=== PATIENT | male | born 1960 | race African-American/Black ===

== ENCOUNTER 2016-12-25 11:04 | Outpatient (CLI) | payer MEDICARE, MEDICAID ==
--- NOTE | 2016-12-25 14:45 | RAD ---
RIGHT KNEE 4 VIEWS: Date: 12/25/16 HISTORY: Osteoarthritis. COMPARISON: None. FINDINGS: There is severe medial compartment osteoarthritic disease. Large osteophytes in medial compartment. There is no acute fracture or malalignment. Small joint effusion. IMPRESSION: Severe medial compartment osteoarthrosis. POS: [facility]
== END 2016-12-25 11:05 | disposition home or self-care (01) ==
LOC: BURRAD 11:04
PROVIDERS: ATTEND Family Medicine
DX: M17.11 Unilateral primary osteoarthritis, right knee (principal)

== ENCOUNTER 2017-01-11 13:41 | Emergency (ER) | payer MEDICARE, MEDICAID ==
[2017-01-11 14:04] LABS: #Basophils 0.1 thou/uL (0.0-0.2); #Eosinphils 0.2 thou/uL (0.0-0.7); #Lymphocytes 3.2 thou/uL (1.20-3.40); #Monocytes 0.8 thou/uL (0.11-0.59); %Basophils 1.3 % (0.0-1.0); %Eosinophils 2.6 % (0.0-10.0); %Lymphocytes 43.9 % (21.0-51.0); %Monocytes 11.5 % (0.0-10.0); %Neutrophils 40.8 % (42.0-75.0); Hemoglobin 12.9 g/dL (14.0-18.0); Mean Corpuscular HGB CONC 32.8 g/dL (32.0-36.0); Mean Corpuscular Hemoglobin 30.8 pg (27.0-31.0); Mean Platelet Volume 8.1 fL (7.4-10.4); Platelet Count 150 thou/uL (130-400); Red Blood Cell (RBC) Count 4.19 mill/uL (4.70-6.10); White Blood Cell (WBC) Count 7.3 thou/uL (4.8-10.8)
[2017-01-11 14:20] LABS: ALT (SGPT) 79 U/L (8-55); AST (SGOT) 86 U/L (5-34); Albumin 3.6 g/dL (3.5-5.0); Alkaline Phosphatase 97 U/L (40-150); Anion Gap 16 mmol/L (10-20); BUN (Urea Nitrogen) 17 mg/dL (8.4-25.7); Calc. Creatinine Clearance 0 mL/min (70-130); Calcium 9.5 mg/dL (7.8-10.44); Carbon Dioxide 22 mmol/L (22-29); Chloride 102 mmol/L (98-107); Estimated GFR-MDRD 63; Globulin 4.5 g/dL (2.4-3.5); Glucose 143 mg/dL (70-105); Potassium 3.8 mmol/L (3.5-5.1); Protein, Total 8.1 g/dL (6.0-8.3); Sodium 136 mmol/L (136-145)
[2017-01-11 14:22] LABS: CKMB 0.9 ng/mL (0-6.6); Troponin I Less than 0.010 ng/mL (< 0.028)
--- NOTE | 2017-01-11 20:37 | RAD ---
CHEST TWO VIEWS: Date: 01-11-17 Comparison: 12-19-12 FINDINGS: The heart is normal in size and the lungs are clear. No infiltrate or effusion was seen. The lungs s how no acute changes. The mediastinum appears normal. The [facility], but this is really no different than its appearance in 2013. IMPRESSION: No acute thoracic finding. POS: HOME
== END 2017-01-11 14:49 | disposition home or self-care (01) ==
LOC: BURERS 13:41
DX: E05.90 Thyrotoxicosis, unspecified without thyrotoxic crisis or storm (principal); F41.9 Anxiety disorder, unspecified; I10 Essential (primary) hypertension; F17.210 Nicotine dependence, cigarettes, uncomplicated; M17.11 Unilateral primary osteoarthritis, right knee
CPT/HCPCS: 36415; 71020; 80053; 82553; 83735; 84443; 84484; 85025; 93005

== ENCOUNTER 2017-02-06 13:45 | Inpatient (IN) | payer MEDICARE, MEDICAID ==
[2017-02-06] MEDS ORDERED: Milk Of Magnesia 30 ML UDCUP PO PRN (16:26)
[2017-02-06] MEDS ORDERED: Mag-Al Plus 1200 MG/1200 MG/120 MG/30 ML UDCUP PO PRN (16:47)
[2017-02-06] MEDS ORDERED: HYDROcodone/Acetaminophen 10/325 mg Tablet ONE ×3 (16:48→20:58)
[2017-02-06] MEDS: HYDROcodone/Acetaminophen 10/325 mg Tablet PO PRN ×2 (16:50→21:00)
[2017-02-06 18:21] VITALS: BMI 34.4
[2017-02-06] MEDS: Enoxaparin Sodium 30 MG/0.3 ML SYRINGE SC SCH (18:37)
[2017-02-06] MEDS ORDERED: cloNIDine HCl 0.1 MG TAB PO SCH (20:00)
[2017-02-06] MEDS: Lisinopril 20 MG TAB PO SCH (20:19)
[2017-02-06] MEDS: Ferrous Gluconate 324 MG TAB PO SCH (20:19)
[2017-02-06] MEDS: traMADol HCl 50 MG TAB PO PRN (20:23)
[2017-02-06] MEDS ORDERED: Lisinopril 5 MG TAB PO SCH (21:00)
[2017-02-06] MEDS: Zolpidem Tartrate 5 MG TAB PO PRN (21:01)
[2017-02-07] MEDS ORDERED: HYDROcodone/Acetaminophen 10/325 mg Tablet ONE ×3 (06:45→12:33)
[2017-02-07] MEDS: HYDROcodone/Acetaminophen 10/325 mg Tablet PO PRN ×4 (06:49→21:05)
[2017-02-07] MEDS: Ferrous Gluconate 324 MG TAB PO SCH ×2 (08:53→21:06)
[2017-02-07] MEDS: Multivitamin W/ Minerals 1 TAB PO SCH (08:53)
[2017-02-07] MEDS: Lisinopril 20 MG TAB PO SCH ×2 (08:53→21:05)
[2017-02-07] MEDS: Cyclobenzaprine 10 MG TAB PO PRN (15:13)
[2017-02-07] MEDS: traMADol HCl 50 MG TAB PO PRN (15:17)
[2017-02-07] MEDS: Enoxaparin Sodium 30 MG/0.3 ML SYRINGE SC SCH (18:40)
[2017-02-07] MEDS: Zolpidem Tartrate 5 MG TAB PO PRN (21:05)
[2017-02-08] MEDS: HYDROcodone/Acetaminophen 10/325 mg Tablet PO PRN ×3 (09:24→20:38)
[2017-02-08] MEDS: Lisinopril 20 MG TAB PO SCH ×2 (09:25→20:37)
[2017-02-08] MEDS: Multivitamin W/ Minerals 1 TAB PO SCH (09:26)
[2017-02-08] MEDS: Ferrous Gluconate 324 MG TAB PO SCH ×2 (09:26→20:37)
[2017-02-08] MEDS: Cyclobenzaprine 10 MG TAB PO PRN (15:04)
[2017-02-08] MEDS: Enoxaparin Sodium 30 MG/0.3 ML SYRINGE SC SCH (17:42)
[2017-02-08] MEDS: traMADol HCl 50 MG TAB PO PRN (17:45)
[2017-02-09] MEDS: Cyclobenzaprine 10 MG TAB PO PRN (01:15)
[2017-02-09] MEDS: HYDROcodone/Acetaminophen 10/325 mg Tablet PO PRN ×6 (01:17→21:09)
[2017-02-09] MEDS: Multivitamin W/ Minerals 1 TAB PO SCH (09:29)
[2017-02-09] MEDS: Lisinopril 20 MG TAB PO SCH ×2 (09:29→21:10)
[2017-02-09] MEDS: Ferrous Gluconate 324 MG TAB PO SCH ×2 (09:29→21:10)
[2017-02-09] MEDS: Enoxaparin Sodium 30 MG/0.3 ML SYRINGE SC SCH (17:21)
[2017-02-09] MEDS: Zolpidem Tartrate 5 MG TAB PO PRN (21:08)
[2017-02-10] MEDS: HYDROcodone/Acetaminophen 10/325 mg Tablet PO PRN ×5 (01:24→21:22)
[2017-02-10] MEDS: traMADol HCl 50 MG TAB PO PRN (03:06)
[2017-02-10] MEDS: Cyclobenzaprine 10 MG TAB PO PRN (03:06)
[2017-02-10] MEDS: Lisinopril 20 MG TAB PO SCH ×2 (09:11→21:23)
[2017-02-10] MEDS: Multivitamin W/ Minerals 1 TAB PO SCH (09:15)
[2017-02-10] MEDS: Ferrous Gluconate 324 MG TAB PO SCH ×2 (09:15→21:23)
[2017-02-10] MEDS: Polyethylene Glycol 3350 17 GM Packet PO SCH (09:15)
[2017-02-10] MEDS ORDERED: Cyclobenzaprine 10 MG TAB PO PRN (15:53)
[2017-02-10] MEDS: Enoxaparin Sodium 30 MG/0.3 ML SYRINGE SC SCH (17:10)
[2017-02-10] MEDS ORDERED: Benzonatate 100 MG CAP PO PRN (18:28)
[2017-02-10] MEDS: Zolpidem Tartrate 5 MG TAB PO PRN (21:22)
[2017-02-11] MEDS: traMADol HCl 50 MG TAB PO PRN (00:03)
[2017-02-11] MEDS: HYDROcodone/Acetaminophen 10/325 mg Tablet PO PRN ×4 (06:22→22:27)
[2017-02-11] MEDS: Ferrous Gluconate 324 MG TAB PO SCH ×2 (10:15→20:48)
[2017-02-11] MEDS: Multivitamin W/ Minerals 1 TAB PO SCH (10:15)
[2017-02-11] MEDS: Polyethylene Glycol 3350 17 GM Packet PO SCH (10:15)
[2017-02-11] MEDS: Lisinopril 20 MG TAB PO SCH ×2 (10:18→20:48)
[2017-02-11] MEDS: Enoxaparin Sodium 30 MG/0.3 ML SYRINGE SC SCH (17:46)
[2017-02-11] MEDS: Zolpidem Tartrate 5 MG TAB PO PRN (22:27)
[2017-02-12] MEDS: Ferrous Gluconate 324 MG TAB PO SCH ×2 (08:35→21:02)
[2017-02-12] MEDS: HYDROcodone/Acetaminophen 10/325 mg Tablet PO PRN ×3 (08:35→21:43)
[2017-02-12] MEDS: Multivitamin W/ Minerals 1 TAB PO SCH (08:36)
[2017-02-12] MEDS: Lisinopril 20 MG TAB PO SCH ×2 (08:36→21:02)
[2017-02-12] MEDS: Polyethylene Glycol 3350 17 GM Packet PO SCH (08:38)
[2017-02-12] MEDS: traMADol HCl 50 MG TAB PO PRN (10:57)
[2017-02-12] MEDS: Enoxaparin Sodium 30 MG/0.3 ML SYRINGE SC SCH (17:40)
[2017-02-13] MEDS: HYDROcodone/Acetaminophen 10/325 mg Tablet PO PRN ×5 (03:59→23:15)
[2017-02-13] MEDS: Polyethylene Glycol 3350 17 GM Packet PO SCH (09:30)
[2017-02-13] MEDS: Lisinopril 20 MG TAB PO SCH ×2 (09:30→20:24)
[2017-02-13] MEDS: Ferrous Gluconate 324 MG TAB PO SCH ×2 (09:31→20:24)
[2017-02-13] MEDS: Multivitamin W/ Minerals 1 TAB PO SCH (09:31)
[2017-02-13] MEDS: Enoxaparin Sodium 30 MG/0.3 ML SYRINGE SC SCH (18:21)
[2017-02-14] MEDS: Polyethylene Glycol 3350 17 GM Packet PO SCH (08:11)
[2017-02-14] MEDS: Ferrous Gluconate 324 MG TAB PO SCH ×2 (08:11→20:59)
[2017-02-14] MEDS: HYDROcodone/Acetaminophen 10/325 mg Tablet PO PRN ×4 (08:12→23:17)
[2017-02-14] MEDS: Multivitamin W/ Minerals 1 TAB PO SCH (08:12)
[2017-02-14] MEDS: Lisinopril 20 MG TAB PO SCH ×2 (08:12→20:59)
[2017-02-14] MEDS: Enoxaparin Sodium 30 MG/0.3 ML SYRINGE SC SCH (17:39)
[2017-02-15] MEDS: Lisinopril 20 MG TAB PO SCH ×2 (08:03→21:01)
[2017-02-15] MEDS: Polyethylene Glycol 3350 17 GM Packet PO SCH (08:03)
[2017-02-15] MEDS: Multivitamin W/ Minerals 1 TAB PO SCH (08:03)
[2017-02-15] MEDS: Ferrous Gluconate 324 MG TAB PO SCH ×2 (08:03→21:00)
[2017-02-15] MEDS: HYDROcodone/Acetaminophen 10/325 mg Tablet PO PRN ×3 (08:04→22:35)
[2017-02-15] MEDS ORDERED: Sodium Chloride 0.9% 10 ML ONE (08:52)
[2017-02-15] MEDS: Enoxaparin Sodium 30 MG/0.3 ML SYRINGE SC SCH (17:40)
[2017-02-16] MEDS: HYDROcodone/Acetaminophen 10/325 mg Tablet PO PRN ×4 (06:24→20:28)
[2017-02-16] MEDS: Multivitamin W/ Minerals 1 TAB PO SCH (08:18)
[2017-02-16] MEDS: Lisinopril 20 MG TAB PO SCH ×2 (08:19→20:25)
[2017-02-16] MEDS: Ferrous Gluconate 324 MG TAB PO SCH ×2 (08:19→20:28)
[2017-02-16] MEDS: Polyethylene Glycol 3350 17 GM Packet PO SCH (08:19)
[2017-02-16] MEDS: Enoxaparin Sodium 30 MG/0.3 ML SYRINGE SC SCH (17:57)
[2017-02-17] MEDS: Zolpidem Tartrate 5 MG TAB PO PRN (00:26)
[2017-02-17 06:48] VITALS: BP 116/59; TEMP 98.2
[2017-02-17] MEDS: Lisinopril 20 MG TAB PO SCH (07:58)
[2017-02-17] MEDS: Polyethylene Glycol 3350 17 GM Packet PO SCH (07:58)
[2017-02-17] MEDS: Multivitamin W/ Minerals 1 TAB PO SCH (07:58)
[2017-02-17] MEDS: Ferrous Gluconate 324 MG TAB PO SCH (07:58)
[2017-02-17] MEDS: HYDROcodone/Acetaminophen 10/325 mg Tablet PO PRN (09:15)
--- NOTE | 2017-02-17 14:21 | DIS ---
DATE OF ADMISSION: 02/06/2017 DATE OF DISCHARGE: 02/17/2017 ADMISSION DIAGNOSES: Status post total right knee replacement, hypertension, and obesity. DISCHARGE DIAGNOSES: Status post total right knee replacement, hypertension, and obesity with drug seeking behavior. PROCEDURES: None. HOSPITAL COURSE: A 56-year-old male presented status post hospital admission at [facility] in [place], status post total right knee replacement via Dr. Celis. The patient was able to participate with physical therapy here, improving his mobility. The patient was admitted with pain control with [place] 10/325 two tabs p.o. q. 4 hours, however, frequently asked for more pain medication prior to scheduled medication treatment. He does have a script that was filled by family member for 100 tablets upon his discharge. The patient had notable uncontrolled hypertension and has had his lisinopril increased to 20 mg p.o. b.i.d. and added amlodipine 5 mg p.o. daily. His blood pressure was well controlled on this regimen and will be continued as an outpatient. He had no further complications during his stay. He was able to participate with physical therapy satisfactorily to meet the goals to enable him to be discharged to his home at this time. He will continue physical therapy in the outpatient setting at [facility]. DISPOSITION: Patient was discharged to home with followup with Dr. Celis, Orthopedic Surgery and further physical therapy at [facility]. DISCHARGE MEDICATIONS: Flexeril 10 mg p.o. t.i.d. p.r.n., Hampton 10/325 one tab p.o. q.6 hours p.r.n. pain, daily multivitamin, lisinopril 20 mg p.o. b.i.d., amlodipine 5 mg p.o. daily. [facility]
== END 2017-02-17 10:06 | disposition home or self-care (01) | DRG 561 ==
LOC: BURMED 14:45
PROVIDERS: ADMIT Family Medicine; ATTEND Family Medicine
DX: Z47.1 Aftercare following joint replacement surgery (principal); I10 Essential (primary) hypertension; Z96.651 Presence of right artificial knee joint; E66.9 Obesity, unspecified; Z68.34 Body mass index [BMI] 34.0-34.9, adult; Z76.5 Malingerer [conscious simulation]; K21.9 Gastro-esophageal reflux disease without esophagitis; M19.90 Unspecified osteoarthritis, unspecified site; B18.2 Chronic viral hepatitis C
CPT/HCPCS: A4216; G8978-GP-CL; G8979-GP-CJ; G8987-GO-CJ; G8988-GO-CI; J1650

== ENCOUNTER 2019-07-26 18:08 | Emergency (ER) | payer MEDICARE, MEDICAID ==
[2019-07-26] MEDS ORDERED: Ondansetron PF 4 MG/2 ML Vial ONE (18:39)
[2019-07-26] MEDS ORDERED: Morphine 4 MG/ML VIAL ONE (18:39)
--- NOTE | 2019-07-26 21:09 | RAD ---
LEFT KNEE FOUR VIEWS: 07/26/19 Comparison is made with the 12/28/08 study. In the interval, the medial joint space is narrowed consid erably. Osteophytes have gotten a bit larger and the articular surfaces of the medial compartment are now rougher. All findings are consistent with osteoarthritis worst in the medial compartment. I see no definite fracture. The lateral view is rotated somewhat so it is difficult to be certain, but I do not feel there is a large joint effusion. IMPRESSION: Moderately severe medial compartment arthritis without firm evidence of fracture. As the resolution o f this study is somewhat low, if pain persists, further imaging such as MRI, might be needed to rule out bony contusion or an internal derangement. POS: HOME
== END 2019-07-26 20:10 | disposition home or self-care (01) ==
LOC: BURERS 18:08
DX: S80.02XA Contusion of left knee, initial encounter (principal); F17.210 Nicotine dependence, cigarettes, uncomplicated; M19.90 Unspecified osteoarthritis, unspecified site; I10 Essential (primary) hypertension; E03.9 Hypothyroidism, unspecified; Z79.899 Other long term (current) drug therapy; W19.XXXA Unspecified fall, initial encounter
CPT/HCPCS: 96374; 96375; J2270; J2405

== ENCOUNTER 2021-08-11 12:01 | Emergency (ER) | payer MEDICARE, MEDICAID ==
[2021-08-11] MEDS ORDERED: Boostrix 0.5 ML (Tdap) VIAL ONE (12:31)
[2021-08-11] MEDS ORDERED: Lidocaine 1% w/Epinephrine 1:100K 20 ML VIAL ONE (12:41)
== END 2021-08-11 13:20 | disposition home or self-care (01) ==
LOC: BURERS 12:01
DX: S01.93XA Puncture wound without foreign body of unspecified part of head, initial encounter (principal); I10 Essential (primary) hypertension; E05.90 Thyrotoxicosis, unspecified without thyrotoxic crisis or storm; M19.90 Unspecified osteoarthritis, unspecified site; F17.210 Nicotine dependence, cigarettes, uncomplicated; W34.010A Accidental discharge of airgun, initial encounter; Z23 Encounter for immunization
CPT/HCPCS: 70450; 90471; 90715; G0390

== ENCOUNTER 2021-11-11 20:35 | Inpatient (IN) | payer MEDICARE, MEDICAID ==
[2021-11-11 21:57] VITALS: BMI 34.0
[2021-11-11] MEDS ORDERED: HYDROcodone/Acetaminophen 10/325 mg Tablet PO PRN ×2 (22:47→23:20)
[2021-11-11] MEDS ORDERED: HYDROcodone/Acetaminophen 10/325 mg Tablet PO SCH (23:30)
[2021-11-12] MEDS ORDERED: HYDROcodone/Acetaminophen 10/325 mg Tablet PO PRN ×2 (05:53→07:16)
[2021-11-12] MEDS: Aspirin 81 mg Enteric Coated Tablet PO SCH ×2 (08:59→21:25)
[2021-11-12] MEDS: Lisinopril 20 MG TAB PO SCH (08:59)
[2021-11-12] MEDS: HYDROcodone/Acetaminophen 10/325 mg Tablet PO PRN ×4 (10:20→22:28)
[2021-11-12] MEDS ORDERED: Polyethylene Glycol 3350 17 GM Packet PO PRN (13:15)
[2021-11-12] MEDS ORDERED: Docusate Sodium 100 MG/10 ML UDCUP PO PRN (13:15)
[2021-11-12 18:35] LABS: SARS-CoV-2 PCR by NAA Not Detected (NotDetected)
[2021-11-13] MEDS: HYDROcodone/Acetaminophen 10/325 mg Tablet PO PRN ×5 (02:28→20:55)
[2021-11-13] MEDS: Lisinopril 20 MG TAB PO SCH (08:09)
[2021-11-13] MEDS: Aspirin 81 mg Enteric Coated Tablet PO SCH ×2 (08:09→20:54)
[2021-11-14] MEDS: HYDROcodone/Acetaminophen 10/325 mg Tablet PO PRN ×5 (01:32→22:04)
[2021-11-14] MEDS: Aspirin 81 mg Enteric Coated Tablet PO SCH ×2 (08:28→20:16)
[2021-11-14] MEDS: Lisinopril 20 MG TAB PO SCH (08:29)
[2021-11-15] MEDS: HYDROcodone/Acetaminophen 10/325 mg Tablet PO PRN ×6 (02:13→22:42)
[2021-11-15] MEDS: Lisinopril 20 MG TAB PO SCH (09:57)
[2021-11-15] MEDS: Aspirin 81 mg Enteric Coated Tablet PO SCH ×2 (09:57→20:48)
[2021-11-16] MEDS: HYDROcodone/Acetaminophen 10/325 mg Tablet PO PRN ×4 (03:46→21:45)
[2021-11-16] MEDS: Aspirin 81 mg Enteric Coated Tablet PO SCH ×2 (08:03→20:01)
[2021-11-16] MEDS: Lisinopril 20 MG TAB PO SCH (08:03)
[2021-11-17] MEDS: Lisinopril 20 MG TAB PO SCH (08:15)
[2021-11-17] MEDS: HYDROcodone/Acetaminophen 10/325 mg Tablet PO PRN ×3 (08:17→20:38)
[2021-11-17] MEDS: Aspirin 81 mg Enteric Coated Tablet PO SCH ×2 (08:17→20:39)
[2021-11-18] MEDS: HYDROcodone/Acetaminophen 10/325 mg Tablet PO PRN ×5 (01:22→23:38)
[2021-11-18] MEDS: Aspirin 81 mg Enteric Coated Tablet PO SCH ×2 (08:12→20:22)
[2021-11-18] MEDS: Lisinopril 20 MG TAB PO SCH (08:12)
[2021-11-19 06:08] VITALS: TEMP 98.6
[2021-11-19] MEDS: Aspirin 81 mg Enteric Coated Tablet PO SCH (08:34)
[2021-11-19] MEDS: Lisinopril 20 MG TAB PO SCH (08:36)
[2021-11-19] MEDS: HYDROcodone/Acetaminophen 10/325 mg Tablet PO PRN (08:40)
[2021-11-19 08:41] VITALS: BP 111/71
== END 2021-11-19 13:40 | disposition home or self-care (01) | DRG 561 ==
LOC: BURMED 21:00
PROVIDERS: ADMIT Family Medicine; ATTEND Family Medicine
DX: Z47.1 Aftercare following joint replacement surgery (principal); Z60.2 Problems related to living alone; R26.9 Unspecified abnormalities of gait and mobility; Z96.653 Presence of artificial knee joint, bilateral; K21.9 Gastro-esophageal reflux disease without esophagitis; D53.9 Nutritional anemia, unspecified; F17.210 Nicotine dependence, cigarettes, uncomplicated; E66.9 Obesity, unspecified; F12.10 Cannabis abuse, uncomplicated; I12.9 Hypertensive chronic kidney disease with stage 1 through stage 4 chronic kidney disease, or unspecified chronic kidney disease; B18.2 Chronic viral hepatitis C; E11.22 Type 2 diabetes mellitus with diabetic chronic kidney disease; N18.2 Chronic kidney disease, stage 2 (mild); Z20.822 Contact with and (suspected) exposure to COVID-19; Z72.89 Other problems related to lifestyle; Z82.49 Family history of ischemic heart disease and other diseases of the circulatory system; Z68.34 Body mass index [BMI] 34.0-34.9, adult; Z79.899 Other long term (current) drug therapy; Z79.82 Long term (current) use of aspirin; Z90.49 Acquired absence of other specified parts of digestive tract
CPT/HCPCS: U0003; U0005

== ENCOUNTER 2023-01-13 18:50 | Emergency (ER) | payer OTHER, MEDICAID ==
[2023-01-13] MEDS ORDERED: Nitroglycerin 0.4 MG TAB 1 EACH ONE (19:16)
[2023-01-13] MEDS ORDERED: Aspirin 325 MG TAB ONE (19:16)
[2023-01-13 19:32] LABS: Hemoglobin 11.1 g/dL (14.0-18.0); Mean Corpuscular HGB CONC 31.9 g/dL (32.0-36.0); Mean Corpuscular Hemoglobin 32.5 pg (27.0-31.0); Mean Platelet Volume 7.6 fL (7.4-10.4); Platelet Count 113 10x3/uL (130-400); RBC Distribution Width 12.6 % (11.5-14.5); Red Blood Cell (RBC) Count 3.42 mill/uL (4.70-6.10); White Blood Cell (WBC) Count 7.4 10x3/uL (4.8-10.8)
[2023-01-13 19:40] LABS: INR-International Normal Ratio 1.1; Prothrombin Time 14.9 sec (12.0-14.7)
[2023-01-13 19:41] LABS: PTT 46.5 sec (22.9-36.1)
[2023-01-13 19:50] LABS: ALT (SGPT) 28 U/L (8-55); AST (SGOT) 51 U/L (5-34); Albumin 2.7 g/dL (3.4-4.8); Alkaline Phosphatase 108 U/L (40-110); Anion Gap 13 mmol/L (10-20); BUN (Urea Nitrogen) 12 mg/dL (8.4-25.7); Bilirubin, Total 1.8 mg/dL (0.2-1.2); Calc. Creatinine Clearance 0 mL/min (70-130); Calcium 8.4 mg/dL (7.8-10.44); Carbon Dioxide 24 mmol/L (23-31); Chloride 105 mmol/L (98-107); Estimated GFR 70; Globulin 4.2 g/dL (2.4-3.5); Glucose 132 mg/dL (80-115); Potassium 3.5 mmol/L (3.5-5.1); Protein, Total 6.9 g/dL (5.8-8.1); Sodium 138 mmol/L (136-145)
[2023-01-13 20:00] LABS: Eosinophils 4 % (0-10); Lymphocytes 23 % (21-51); MDiff Complete? YES; Macrocytosis SLIGHT = 6-15 cells (100X) (0-5/hpf); Monocytes 10 % (0-10); Neutrophil 63 % (42-75); Platelet Adequacy Comment Appears Decreased
[2023-01-13 21:25] LABS: Amphetamine Detected (NotDetected); Barbiturates Screen Not Detected (NotDetected); Benzodiazepine Screen Not Detected (NotDetected); Cocaine Metabolite Screen Not Detected (NotDetected); Methadone Not Detected (NotDetected); Methamphetamine Detected (NotDetected); Opiate Screen Not Detected (NotDetected); Oxycodone Screen Not Detected (NotDetected); Phencyclidine (PCP) Not Detected (NotDetected); THC/Cannabinoid Screen Detected (NotDetected); Tricyclic Screen Not Detected (NotDetected)
== END 2023-01-13 23:55 | disposition short-term general hospital (02) ==
LOC: BURERS 18:50
DX: R07.9 Chest pain, unspecified (principal); D64.9 Anemia, unspecified; F15.10 Other stimulant abuse, uncomplicated; E05.90 Thyrotoxicosis, unspecified without thyrotoxic crisis or storm; I10 Essential (primary) hypertension; F17.210 Nicotine dependence, cigarettes, uncomplicated
CPT/HCPCS: 71046; 80053; 80306; 83880; 84484; 85025; 85610; 85730; 93005; 94760